=== PATIENT | female | born 1990 | race Caucasian/White ===

== ENCOUNTER 2021-10-24 17:34 | Emergency (ER) | payer BC, MEDICAID ==
[~2021-10-24] VITALS: Ht 177.8 cm; Wt 84.1 kg
[~2021-10-24 17:34] MED LIST: ASPI-803 PO; NITR100C6 PO; ONDA8TAB9 PO
[2021-10-24 17:43] VITALS: BP 140/83
[2021-10-24] MEDS ORDERED: LIDOcaine 1% W/epiNEPHrine 1:200,000 10ml vial IJ ONE (18:55)
[2021-10-24] MEDS ORDERED: DOXYCYCLINE 100MG CAPSULE PO STA (19:17)
== END 2021-10-24 19:43 | disposition home or self-care (01) ==
LOC: ER 17:37
DX: S90.851A Superficial foreign body, right foot, initial encounter (principal); F12.90 Cannabis use, unspecified, uncomplicated; Z90.49 Acquired absence of other specified parts of digestive tract; Z88.2 Allergy status to sulfonamides; Z88.0 Allergy status to penicillin; Z79.899 Other long term (current) drug therapy; W45.8XXA Other foreign body or object entering through skin, initial encounter; Y93.A3 Activity, aerobic and step exercise; Y92.89 Other specified places as the place of occurrence of the external cause; Y99.8 Other external cause status
CPT/HCPCS: 99281; 99284